=== PATIENT | female | born 1975 ===

== ENCOUNTER → 2018-03-31 21:27 | Outpatient (REF) | payer OTHER, SELFPAY ==
[2018-03-31 22:09] LABS: Appearance Urine UA SL CLOUDY; Bilirubin Urine UA NEGATIVE (NEGATIVE); Color Urine UA YELLOW; Glucose Urine UA NEGATIVE (Negative); Ketones Urine UA NEGATIVE (NEGATIVE); Leukocyte Esterase Urine UA 2+ (NEGATIVE); Nitrite Urine UA NEGATIVE (Negative); Occult Blood Urine UA TRACE-INTACT (Negative); Protein Urine UA TRACE (Negative); Specific Gravity Urine UA 1.015 (1.000-1.035); Urobilinogen Urine UA 0.2 E.U./dL (0.2); pH Urine UA 7.5 (4.5-8.0)
[2018-03-31 22:10] LABS: Add Manual Diff / Slide Review NO; Basophils Absolute Auto 100 /uL (0-100); Basophils Percent Auto 1.1 % (0-2); Eosinophils Absolute Auto 400 /uL (0-450); Eosinophils Percent Auto 7.8 % (2-4); Hematocrit 35.7 % (36-46); Hemoglobin 11.7 g/dL (12.0-16.0); Lymphocytes Absolute Auto 1400 /uL (1100-4500); Lymphocytes Percent Auto 24.7 % (25-40); Mean Corpuscular HGB Conc 32.8 % (30-36); Mean Corpuscular Hemoglobin 29.9 PG (26-34); Mean Corpuscular Volume 91.1 fL (80-100); Monocytes Absolute Auto 400 /uL (0-900); Neutrophils Absolute Auto 3400 /uL (1500-7000); Neutrophils Percent Auto 59.4 % (50-75); Platelet Count 151 X10^3/uL (150-400); Red Blood Cell Count 3.92 X10^6/uL (4.0-5.2); Red Cell Distribution Width 14.2 % (11.6-14.8); White Blood Cell Count 5.7 X10^3/uL (4.5-11.0)
[2018-03-31 22:24] LABS: Alanine Aminotransferase 31 IU/L (9-52); Albumin 4.3 g/dL (3.5-5.0); Albumin Globulin Ratio 1.4 (1.0-2.8); Alkaline Phosphatase 56 U/L (38-126); Aspartate Aminotransferase 23 IU/L (14-36); BUN Creatinine Ratio 25.7 (6-22); Bilirubin Total 0.8 mg/dL (0.2-1.3); Blood Urea Nitrogen 18 mg/dL (7-17); Calcium 9.1 mg/dL (8.4-10.2); Carbon Dioxide 25 mmol/L (22-32); Chloride 103 mmol/L (98-107); Cholesterol 119 mg/dL (140-199); Estimated Glomerular Filt Rate > 60.0 mL/min (>60); Glucose 75 mg/dL (70-100); HDL Cholesterol 72 mg/dL (40-60); HEMOLYSIS < 15 (0-50); LDL Cholesterol Calculated 38 mg/dL (<100); Potassium 4.3 mmol/L (3.4-5.1); RBC Urine 0-1/HPF (0-5/HPF); Sodium 139 mmol/L (137-145); Squamous Epithelial Cell Urine 10-30 /HPF; Total Protein 7.3 g/dL (6.3-8.2); Triglycerides 44 mg/dL (35-150); WBC Urine 0-1/HPF (0-5/HPF)
[2018-03-31 22:25] LABS: Bacteria Urine Few (2-10); Mucus Urine 1+ (Negative)
[2018-03-31 22:26] LABS: Culture Indicated Urine Cult Not Indicated
[2018-03-31 22:42] LABS: Follicle Stimulating Hormone 5.49 mIU/mL; Luteinizing Hormone 4.15 mIU/mL
[2018-03-31 22:57] LABS: TSH w/ Reflex to FT4 0.59 uIU/mL (0.47-4.68)
[2018-03-31 23:00] LABS: Ferritin 35.2 ng/mL (6.27-137)
[2018-04-03 22:05] LABS: Progesterone 5.6 ng/mL
[2018-04-03 22:07] LABS: Estradiol 36 pg/mL
[2018-04-03 22:49] LABS: Estrogen 185.6 pg/mL
== END ==
LOC: LAB 21:27
PROVIDERS: Visit Provider Family Medicine
DX: Z00.00 Encounter for general adult medical examination without abnormal findings (principal); Z13.89 Encounter for screening for other disorder
CPT/HCPCS: 36415; 80053; 80061; 81001; 82627; 82670; 82672; 82728; 83001; 83002; 84144; 84443; 85025